=== PATIENT | male | born 1965 | race Caucasian/White ===

== ENCOUNTER 2018-03-01 09:34 | Emergency (ER) | payer OTHER ==
[2018-03-01] MEDS ORDERED: NORMAL SALINE 1000 ML 1,000 ML IV ONE (09:48)
[2018-03-01] MEDS ORDERED: PANTOPRAZOLE SODIUM 40 MG VIAL IV ONE (09:48)
[2018-03-01] MEDS ORDERED: GLUCAGON,HUMAN RECOMB 1 MG INJ IV ONE (09:49)
[2018-03-01] MEDS ORDERED: ONDANSETRON HCL INJ/PF 4 MG/2 ML SDV IV ONE (09:51)
--- NOTE | 2018-03-01 09:52 | ER Document Report ---
ED Medical Screen (RME) - General Chief Complaint: Difficulty Swallowing Stated Complaint: TROUBLE SWALLOWING Time Seen by Provider: 03/01/18 09:48 TRAVEL OUTSIDE OF THE [place] IN LAST 30 DAYS: No - HPI Notes: 03/01/18 09:51 Patient was eating steak last night when he felt a piece got stuck and able to tolerate food or liquids at this time spitting in a cup airway is intact speaking in a normal voice. No history of esophageal problems in the past - Related Data Allergies/Adverse Reactions: Penicillins Allergy (Verified 03/01/18 09:36) Sulfa (Sulfonamide Antibiotics) Allergy (Verified 03/01/18 09:36) Past Medical History - Past Medical History Cardiac Medical History: Reports: Hx Hypertension Renal/ Medical History: Denies: Hx Peritoneal Dialysis GI Medical History: Reports: Hx Gastroesophageal Reflux Disease Review of Systems - Review of Systems Constitutional: Other - 2 boluses Physical Exam - Vital signs Vitals: Temp Pulse Resp BP Pulse Ox 98.0 F 63 16 136/86 H 100 03/01/18 09:40 03/01/18 09:40 03/01/18 09:40 03/01/18 09:40 03/01/18 09:40 - General General appearance: Appears well In distress: None - Respiratory Respiratory status: No respiratory distress Chest status: Nontender Breath sounds: Normal Chest palpation: Normal Course - Re-evaluation Re-evalutation: 03/01/18 09:52 We will give a dose of glucagon IV along with nausea medication placed in the bag ekg monitor tech - Vital Signs Vital signs: Temp Pulse Resp BP Pulse Ox 98.0 F 63 16 136/86 H 100 03/01/18 09:40 03/01/18 09:40 03/01/18 09:40 03/01/18 09:40 03/01/18 09:40 Doctor's Discharge - Discharge Referrals: DIOR CALIXTO MD [Primary Care Provider] - Follow up as needed
--- NOTE | 2018-03-01 11:04 | ER Document Report ---
ED General - General Chief Complaint: Difficulty Swallowing Stated Complaint: TROUBLE SWALLOWING Time Seen by Provider: 03/01/18 09:48 TRAVEL OUTSIDE OF THE [place] IN LAST 30 DAYS: No - HPI Patient complains to provider of: meat bolus impaction Onset: This morning - 52-year-old otherwise healthy man who presents for evaluation of food impaction which he developed while eating steak last night, since that time he has not been able to swallow his own spit is been recurrently spitting up trying to take small sips of water and then spitting up large volumes of water. Is never had anything like this before, nothing is seemed to make it any better or worse. There is no fevers no chills. - Related Data Allergies/Adverse Reactions: Penicillins Allergy (Verified 03/01/18 09:36) Sulfa (Sulfonamide Antibiotics) Allergy (Verified 03/01/18 09:36) Past Medical History - General Information source: Patient - Social History Smoking Status: Never Smoker Family History: None Patient has suicidal ideation: No Patient has homicidal ideation: No - Past Medical History Cardiac Medical History: Reports: Hx Hypertension Renal/ Medical History: Denies: Hx Peritoneal Dialysis GI Medical History: Reports: Hx Gastroesophageal Reflux Disease Review of Systems - Review of Systems -: Yes All other systems reviewed and negative Physical Exam - Vital signs Vitals: Temp Pulse Resp BP Pulse Ox 98.0 F 63 16 136/86 H 100 03/01/18 09:40 03/01/18 09:40 03/01/18 09:40 03/01/18 09:40 03/01/18 09:40 - General General appearance: Appears well In distress: Mild - HEENT Head: Normocephalic Eyes: Normal Conjunctiva: Normal Cornea: Normal Extraocular movements intact: Yes Eyelashes: Normal Nasal: Normal Mouth/Lips: Normal Mucous membranes: Normal Pharynx: Normal Neck: Normal - Respiratory Respiratory status: No respiratory distress Chest status: Nontender Breath sounds: Normal Chest palpation: Normal - Cardiovascular Rhythm: Regular Heart sounds: Normal auscultation Murmur: No - Abdominal Inspection: Normal Distension: No distension Tenderness: Nontender - Back Back: Normal - Extremities General upper extremity: Normal inspection, Nontender, Normal strength, Normal temperature General lower extremity: Normal inspection, Nontender, Normal strength, Normal temperature - Neurological Neuro grossly intact: Yes Cognition: Normal Orientation: AAOx4 [place] Coma Scale Eye Opening: Spontaneous [place] Coma Scale Verbal: Oriented [place] Coma Scale Motor: Obeys Commands [place] Coma Scale Total: 15 Course - Re-evaluation Re-evalutation: 03/01/18 16:58 Otherwise healthy 52-year-old man who presents for evaluation approximately 10 hours after having attempted to ingest piece of steak feeling a check caught in his throat. Since that time he has had difficulty swallowing and has been spitting up repeatedly, he is attempted to drink several items without any ability to pass, as such presented for further evaluation. Investigation the person is actively spitting up her secretions, intermittently does handle very small volumes of secretions but is unable to tolerate any actual volume of spit greater than only scant amount. Through triage patient underwent treatment with glucagon as well as initiation with a saline bolus, had an episode which he felt like he had improvement in his symptoms, 3 times thereafter attempted to swallow soda without any improvement in his symptoms. Given that he is continued to have difficulty swallowing will attempt to contact on-call music therapy specialist. Unable to reach general surgeon Dr. Roth in-house, as a result will plan for transfer for gastro and neurologist. Have contacted Keli Barron and Dr. Romero who agreed to receive this patient in transport for probable endoscopy. - Vital Signs Vital signs: Temp Pulse Resp BP Pulse Ox 98.0 F 63 15 128/85 H 97 03/01/18 09:40 03/01/18 09:40 03/01/18 14:00 03/01/18 11:01 03/01/18 14:00 - Laboratory Result Diagrams: 03/01/18 12:20 03/01/18 15:15 Laboratory results interpreted by me: 03/01/18 03/01/18 03/01/18 12:20 12:20 15:15 WBC 11.3 H Absolute Neutrophils 8.6 H APTT 22.3 L Sodium 147.3 H Discharge - Discharge Referrals: DIOR CALIXTO MD [ACTIVE STAFF] - Follow up as needed
[2018-03-01 11:57] VITALS: BP 128/85
[2018-03-01 12:32] LABS: ABSOLUTE BASOPHILS # (AUTO) 0.1 10^3/uL (0.0-0.2); ABSOLUTE EOSINOPHILS # (AUTO) 0.3 10^3/uL (0.0-0.6); ABSOLUTE LYMPHOCYTES (AUTO) 1.6 10^3/uL (0.5-4.7); ABSOLUTE MONOCYTES (AUTO) 0.7 10^3/uL (0.1-1.4); ABSOLUTE NEUT (AUTO) 8.6 10^3/uL (1.7-8.2); BASOPHILS % (AUTO) 1.3 % (0-2); EOSINOPHILS % (AUTO) 2.6 % (0-6); HEMATOCRIT 44.4 % (37.9-51.0); MEAN CORPUSCULAR HEMOGLOBIN 31.3 pg (27.0-33.4); MEAN CORPUSCULAR HGB CONC 33.9 g/dL (32.0-36.0); MEAN CORPUSCULAR VOLUME 92 fl (80-97); MONOCYTES % (AUTO) 6.5 % (3-13); PLATELET COUNT 220 10^3/uL (150-450); RED CELL DISTRIBUTION WIDTH 12.9 % (11.5-14.0); SEGMENTED NEUTROPHILS % (AUTO) 75.6 % (42-78); TOTAL CELLS COUNTED % (AUTO) 100 %; WHITE BLOOD COUNT 11.3 10^3/uL (4.0-10.5)
[2018-03-01 12:38] LABS: INTERNATIONAL RATION (INR) 0.97; PARTIAL THROMBOPLASTIN TIME 22.3 SEC (23.5-35.8); PROTHROMBIN TIME 13.3 SEC (11.4-15.4)
[2018-03-01 16:09] LABS: ANION GAP 12 (5-19); BLOOD UREA NITROGEN 18 mg/dL (7-20); CALCIUM 9.9 mg/dL (8.4-10.2); CARBON DIOXIDE 28 mmol/L (22-30); CHLORIDE 107 mmol/L (98-107); GLUCOSE 76 mg/dL (75-110); POTASSIUM 4.4 mmol/L (3.6-5.0); SODIUM 147.3 mmol/L (137-145)
== END 2018-03-01 18:41 | disposition short-term general hospital (02) ==
LOC: ER 09:34
DX: T18.128A Food in esophagus causing other injury, initial encounter (principal); X58.XXXA Exposure to other specified factors, initial encounter; Y93.89 Activity, other specified; I10 Essential (primary) hypertension; Z88.0 Allergy status to penicillin; Z88.2 Allergy status to sulfonamides
CPT/HCPCS: 99285; 96361; 96374; 96375; 36415; 85025; 85610; 85730; 80048; J1610; S0164; J2405; J7030